=== PATIENT | female | born 1990 | race Caucasian/White ===

== ENCOUNTER 2024-08-09 03:00 | Day surgery (SDC) | payer BC, SELFPAY ==
[2024-08-09] VITALS (21 sets, daily range): BP systolic 93–140; BP diastolic 57–100; PULSE 53–92; RESP 11–18; TEMP 36.3–37; O2SAT 92–100; BMI 29.1
--- NOTE | 2024-08-09 03:33 | ED_ITS ---
HPI - General Adult General Chief complaint: Nausea/Vomiting Stated complaint: Vomiting Time Seen by Provider: 08/09/24 03:22 Source: patient Mode of arrival: ambulatory Limitations: no limitations History of Present Illness HPI narrative: 34-year-old female presents the emergency department for evaluation of abdominal pain. Epigastric and right upper quadrant area in nature. Patient has been having some intermittent similar episodes that are not this severe over the past year or 2. She has worked with her primary care provider and they have suspected that she probably has gallstones. She has not had imaging. No excessive alcohol intake. She had been modifying her diet, eating bland, low- fat foods. Tonight, she made tacos for her family. No one else is ill. But about an hour after dinner she started having intense abdominal pain with nausea. She tried taking Tylenol and ibuprofen and taking a hot bath but her symptoms worsen. She continues to have persistent vomiting which is now just retching. No fever. Pain persists. Does not radiate. She has had a prior vaginal posterior pelvic wall repair. She has also had a laparoscopic tubal ligation. No other intra-abdominal surgeries. Past medical history is notable for anxiety disorder. Takes fluoxetine 20 mg once daily. No known drug allergies. Denies significant alcohol intake. ROS is notable for the generalized and GI symptoms as above, otherwise denies times 12 systems. Related Data Home Medications ?Medication ?Instructions ?Recorded ?Confirmed fluoxetine 20 mg capsule 20 mg PO QAM 08/09/24 08/09/24 Allergies Allergy/AdvReac Type Severity Reaction Status Date / Time No Known Drug Allergies Allergy Verified 08/09/24 03:15 Exam Const: Vital Signs, click to edit/add: Vital Signs - 24 hr 08/09/24 03:10 Temperature 97.7 F Pulse Rate [Pulse Oximeter] 68 Respiratory Rate 16 Blood Pressure [Ri ght Upper Arm] 129/95 H Pulse Oximetry 98 Oxygen Delivery Me thod Room Air Documenting provider has reviewed patient's vital signs: yes Common normals: no apparent distress General appearance: well kempt Other: Appears mildly acutely ill. Pale. HENMT: Common normals: normocephalic, moist oral mucous membranes and oropharynx normal Head and scalp: normocephalic Eye: Common normals: conjunctivae normal and no scleral icterus General eye: normal appearance of both eyes Conjunctiva: conjunctiva(e) normal Neck & C-Spine: Common normals: full ROM and no lymphadenopathy Resp: Common normals: normal respiratory effort, no use of accessory muscles and clear to auscultation bilaterally Effort & inspection: able to speak in complete sentences Auscultation: clear to auscultation bilaterally Cardio: Common normals: regular rate, regular rhythm, S1 normal heart sound, S2 normal heart sound and no murmurs Rate: regular rate Rhythm: regular rhythm Heart sounds: S1 normal and S2 normal GI: Common normals: Normal to inspection, nondistended, normoactive bowel sounds present, soft to palpation, no hepatosplenomegaly and no masses Palpation: soft and no hepatosplenomegaly Other: Mildly tender to palpation of epigastrium and right upper quadrant. Does not seem to have guarding or rebound tenderness. : Common normals: no CVA tenderness Bladder/kidney exam: no CVA tenderness Back & Pelvis: Common normals: no CVA tenderness Extremity: Common normals: normal to inspection, normal capillary refill and no pedal edema Psych: Common normals: speech normal Appearance: well kempt Attitude: engaged Activity/motor behavior: appropriate eye contact Speech: normal speech Mood and affect: euthymic mood Insight: insight good Judgement: judgment good Skin: Common normals: no rashes or lesions noted General skin exam: no rashes or lesions noted Course Course ED Course: 34-year-old female with recurrent abdominal pain suspicious for baseline gallbladder disease now presenting with more severe pain, nausea and vomiting and persistent symptoms over the past several hours that is suspicious for acute cholecystitis. Cannot exclude choledocholithiasis, colitis, gastritis, musculoskeletal etiology, pancreatitis, amongst others. Will obtain urinalysis, test, typical intra-abdominal labs. I would like to await these studies prior to ordering imaging. We do not have non emergent ultrasound available overnight. Ultrasound may be better than CT based on lab findings. Will give Dilaudid and Zofran as well as a 0.5 L of IV fluids. We are still on conservation mode due to national shortage for IV fluids. Reevaluation(s) Time of Reevaluation #1: 05:32 Reevaluation #1: Updated patient on CT findings, consistent with acute appendicitis. Labs reassuring except mild leukocytosis. Spoke with Dr. Medina from surgery, will plan for appendectomy today. Will give Zosyn x1 and another 500 mL fluid bolus. P.r.n. Dilaudid has been ordered. We still do not have overnight nursing support, will plan to admit to same day surgery once available later this morning. Vital Signs Vital signs: Initial Vital Signs Temperature 97.7 F 08/09/24 03:10 Temperature Source Temporal Artery Scan 08/09/24 03:10 Pulse Rate 68 08/09/24 03:10 Respiratory Rate 16 08/09/24 03:10 Blood Pressure 129/95 H 08/09/24 03:10 Blood Pressure Mean 106 H 08/09/24 03:10 Blood Pressure Position Supine 08/09/24 03:10 Pulse Oximetry 98 08/09/24 03:10 Oxygen Delivery Method Room Air 08/09/24 03:10 Vital Signs Temperature 97.7 F 08/09/24 03:10 Pulse Rate 68 08/09/24 03:10 Respiratory Rate 16 08/09/24 03:10 Blood Pressure 129/95 H 08/09/24 03:10 Pulse Oximetry 98 08/09/24 03:10 Oxygen Delivery Method Room Air 08/09/24 03:10 Temperature 97.7 F 08/09/24 03:10 Pulse Rate 68 08/09/24 03:10 Respiratory Rate 16 08/09/24 03:10 Blood Pressure 129/95 H 08/09/24 03:10 Pulse Oximetry 98 08/09/24 03:10 Oxygen Delivery Method Room Air 08/09/24 03:10 Medications Administered Medications: Generic Name Dose Route Start Last Admin Trade Name Freq PRN Reason Stop Dose Admin Hydromorphone HCl 0.2 - 0.5 mg 08/09/24 05:30 08/09/24 05:53 Hydromorphone 0.5 Mg/0.5 Ml Inj IVP 0.5 mg Q1H PRN Administration Pain Discontinued Medications Generic Name Dose Route Start Last Admin Trade Name Freq PRN Reason Stop Dose Admin Hydromorphone HCl 0.5 mg 08/09/24 03:31 08/09/24 03:40 Hydromorphone 0.5 Mg/0.5 Ml Inj IVP 08/09/24 03:32 0.5 mg ONCE ONE Administration Sodium Chloride 500 mls @ 500 mls/hr 08/09/24 03:31 08/09/24 04:09 0.9 % Sodium Chloride 500 Ml IV 08/09/24 04:30 Infused .Q1H ONE Infusion Piperacillin Sod/Tazobactam 100 mls @ 200 mls/hr 08/09/24 05:30 08/09/24 05:53 Sod 3.375 gm/ Sodium Chloride IVPB 08/09/24 05:31 200 mls/hr ONCE ONE Administration Sodium Chloride 500 mls @ 500 mls/hr 08/09/24 05:30 08/09/24 05:53 0.9 % Sodium Chloride 500 Ml IV 08/09/24 06:29 500 mls/hr .Q1H ONE Administration Ondansetron HCl 4 mg 08/09/24 03:31 08/09/24 03:39 Ondansetron 2 Mg/Ml Inj IVP 08/09/24 03:32 4 mg ONCE ONE Administration Medical Decision Making Lab Data Labs: Lab Results 08/09/24 08/09/24 Range/Units 03:23 04:14 WBC 13.00 H (4.50-11.00) K/uL RBC 4.86 (4.00-5.20) m/uL Hgb 14.4 (12.0-16.0) gm/dL Hct 43.4 (33.0-51.0) % MCV 89 (80-100) fL MCH 30 (26-34) pg MCHC 33 (32-36) gm/dL RDW Coeff of Pari 11.9 (11.5-15.5) % Plt Count 215 (140-440) K/uL Neut % (Auto) 81.1 H (42.0-72.0) % Lymph % (Auto) 11.2 L (20-44) % [place] % (Auto) 6.0 (0.0-11.0) % Eos % (Auto) 1.3 (0.0-7.0) % Baso % (Auto) 0.2 (0.0-3.0) % Neut # (Auto) 10.50 H (1.7-7.0) K/uL Lymph # (Auto) 1.50 (0.90-2.90) K/uL [place] # (Auto) 0.80 (0.00-0.90) K/UL Eos # (Auto) 0.20 (0.00-0.50) K/uL Baso # (Auto) 0.00 (0.00-0.30) K/uL Abs Immat Gran (auto) 0.00 (0.00-0.30) K/uL Imm/Tot Granulo (auto) 0.2 % Sodium 136 (135-149) mmol/L Potassium 4.0 (3.6-5.1) mmol/L Chloride 100 (96-114) mmol/L Carbon Dioxide 24 (20-32) mmol/L Anion Gap 12 (7-15) mEq/L BUN 16 (5-24) mg/dL Creatinine 0.7 (0.5-1.5) mg/dL Estimated Creat Clear 107.01 Estimated GFR 117 ml/min Glucose 120 H (60-115) mg/dL Calcium 9.6 (8.4-10.6) mg/dL Total Bilirubin 0.6 (0.1-1.5) mg/dL AST 33 (12-35) U/L ALT 20 (4-35) U/L Alkaline Phosphatase 62 (40-150) U/L C-Reactive Protein 0.5 (0.5-1.0) mg/dL Total Protein 7.7 (6.0-8.3) g/dL Albumin 4.6 (3.3-5.0) g/dL Lipase 49 (23-300) U/L Urine Color Yellow (Yellow) Urine Appearance Cloudy A (Clear) Urine pH >= 9.0 H (5.0-8.5) Ur Specific [place] 1.015 (1.000-1.030) Urine Protein 1+ A (Negative) Urine Glucose (UA) Negative (Negative) Urine Ketones Negative (Negative) Urine Blood 3+ A (Negative) Urine Nitrite Negative (Negative) Urine Bilirubin Negative (Negative) Urine Urobilinogen 0.2 (0.2-1.0) Ur Leukocyte Esterase Trace A (Negative) Urine RBC 10-25 A (0-2) Urine WBC 0-2 (0-5) Ur Squamous Epith Cells Few (None-Few) Amorphous Sediment Few A (None) Urine Bacteria Few A (None) Urine HCG, Qual Negative (Negative) Discharge Plan Discharge Clinical Impression: Acute appendicitis Patient Disposition: XFER to OR Follow Up/Referrals: Beba Fields MD [Primary Care Provider] -
[2024-08-09 03:38] LABS: Basophils Percent Auto 0.2 % (0.0-3.0); Eosinophils Percent Auto 1.3 % (0.0-7.0); Hematocrit 43.4 % (33.0-51.0); Hemoglobin* 14.4 gm/dL (12.0-16.0); Immature Granulocytes Pct Auto 0.2 %; Lymphocytes Percent Auto 11.2 % (20-44); Mean Corpuscular HGB Conc 33 gm/dL (32-36); Mean Corpuscular Hemoglobin 30 pg (26-34); Mean Corpuscular Volume 89 fL (80-100); Neutrophils Percent Auto 81.1 % (42.0-72.0); Platelet Count* 215 K/uL (140-440); RDW Coefficient of Variation % 11.9 % (11.5-15.5); Red Blood Count 4.86 m/uL (4.00-5.20); Slide Review Reflex No
[2024-08-09] MEDS: ONDANSETRON 2 MG/ML inj 4 MG IVP ×2 (03:39→09:16)
[2024-08-09] MEDS: 0.9 % SODIUM CHLORIDE 500 ML 500 ML IV ×2 (03:39→05:53)
[2024-08-09] MEDS: HYDROmorphone 0.5 mg/0.5 ml inj IVP ×4 (03:40→11:35)
[2024-08-09 03:43] LABS: Albumin* 4.6 g/dL (3.3-5.0); Chloride* 100 mmol/L (96-114)
[2024-08-09 03:44] LABS: Sodium* 136 mmol/L (135-149)
[2024-08-09 03:46] LABS: Bilirubin Total* 0.6 mg/dL (0.1-1.5); Creatinine* 0.7 mg/dL (0.5-1.5); Est. Creatinine Clearance* 107.01; Estimated Glomerular Filt Rate 117 ml/min
[2024-08-09 03:47] LABS: Alanine Aminotransferase* 20 U/L (4-35); Alkaline Phosphatase* 62 U/L (40-150); Anion Gap 12 mEq/L (7-15); Aspartate Amino Transferase* 33 U/L (12-35); Blood Urea Nitrogen* 16 mg/dL (5-24); Calcium* 9.6 mg/dL (8.4-10.6); Carbon Dioxide* 24 mmol/L (20-32); Glucose* 120 mg/dL (60-115); Lipase* 49 U/L (23-300); Total Protein* 7.7 g/dL (6.0-8.3)
[2024-08-09 03:50] LABS: C Reactive Protein* 0.5 mg/dL (0.5-1.0)
[2024-08-09 04:19] LABS: Appearance Urine Cloudy (Clear); Bilirubin Urine Negative (Negative); Blood Urine 3+ (Negative); Color Urine Yellow (Yellow); Glucose Urine Negative (Negative); Ketones Urine Negative (Negative); Leukocyte Esterase Urine Trace (Negative); Nitrite Urine Negative (Negative); Protein Urine 1+ (Negative); Specific Gravity Urine 1.015 (1.000-1.030); Urobilinogen Urine 0.2 (0.2-1.0)
[2024-08-09 04:21] LABS: Ur HCG Qualitative* Negative (Negative); pH Urine >= 9.0 (5.0-8.5)
--- NOTE | 2024-08-09 04:24 | CRLHL7_ITS ---
For Patients: As a result of the Century Cures Act, medical imaging exams and procedure reports are released immediately into your electronic medical record. You may view this report before your referring provider. If you have questions, please contact your health care provider. INDICATION: Right upper quadrant abdominal pain. COMPARISON: None. TECHNIQUE: CT of the abdomen and pelvis with intravenous contrast. Multiplanar axial, coronal, and sagittal reformats were reconstructed. Contrast: 89 mL Isovue 370. FINDINGS: Lung bases: Calcified granuloma right lower lobe Liver: Normal. No mass. Gallbladder and bile ducts: Normal gallbladder. No bile duct dilation. Pancreas: Normal. Spleen: Calcified granulomas. Adrenal glands: Normal. Kidneys: Normal parenchyma. No cyst or solid mass. No calculi. No urinary tract dilation. Urinary bladder: Normal. Pelvis: There are 2 separate endometrial canals at the uterine fundus by 3.4 cm. Indentation that this 2 centimeters and the angle between the fundi is 60 degrees. Preserved contour of the uterine fundus, without indentation. Overall findings likely reflect a septate uterus. Vessels: Normal. Bowel: No dilated or inflamed small bowel or colon. The appendix arises from the cecum and extends along the right pelvic sidewall posteriorly with the tip down along the right side of the rectum. At the appendiceal base there is a 6 millimeter appendicolith with significant adjacent inflammatory thickening and edema in the appendix wall. Maximum appendiceal diameter 1.5 cm. The distal appendix is dilated up to 1.1 cm. Mild adjacent inflammatory stranding and no phlegmon or abscess. See axial images series 2 image 125 through series 2, image 114 to follow the appendix from the base to the tip. Mild stool burden. Trace pelvic free fluid. Lymph nodes: No adenopathy. Peritoneum: No ascites. Abdominal wall: No hernia. Bones: No fractures. No focal worrisome bone lesions. IMPRESSION: Acute appendicitis. There is an appendicolith. No abscess or phlegmon. Please note that all CT scans at this facility use dose modulation, iterative reconstruction, and/or weight-based dosing when appropriate to reduce radiation dose to as low as reasonably achievable. Dictated by Emily Goodwin MD @ 08/09/2024 5:22:37 AM (Electronically Signed)
[2024-08-09 04:26] LABS: Amorphous Sediment Urine Few; Bacteria Urine Few; Squamous Epithelial Cell Urine Few (None-Few); WBC Urine 0-2 (0-5)
[2024-08-09] MEDS: PIPERACILLIN/TAZOBACTAM 3.375 GM in 0.9 % SODIUM CHLORIDE Mini-bag 100 ML IVPB (05:53)
--- NOTE | 2024-08-09 09:18 | ED.NURSE ---
Dr. Ryan in with patient consulting for procedure.
--- NOTE | 2024-08-09 09:54 | P.GSHP_ITS ---
History of Present Illness History of Present Illness Date Seen: 08/09/24 Chief complaint: Vomiting Narrative: Shandra Littlejohn is a 34 year old female presented to emergency room with multiple episodes of vomiting and crampy periumbilical abdominal pain. Patient states that her pain started after she started vomiting. The episodes of vomiting started last night. Patient vomited multiple times. She was concerned that it was her gallbladder that was causing her trouble. Patient took ibuprofen and Tylenol but that did not improve her pain. I personally reviewed her workup in the emergency room. Patient was found to have elevated WBC of 13. Her liver function tests were normal. An abdominal CT was obtained that showed dilated wall enhancing appendix with an appendicolith at the base with periappendiceal inflammation. The appendix was located in the pelvis. There was no evidence of periappendiceal abscess. Review of Systems Narrative: General: no fevers HENT: no problems swallowing CV: no shortness of breath Resp: no cough GI: No nausea, vomiting, abdominal pain : no dysuria, no increased urinary frequency, no hematuria Skin: no new rashes Musculoskeletal: no back pain Neuro: no muscle weakness Psyche: no depression, no anxiety PFSH PFSH Surgical History H/O lymph node excision ?Z98.890 - Other specified postprocedural states (ICD-10) H/O tubal ligation ?Z98.51 - Tubal ligation status (ICD-10) History of vaginal surgery ?Z98.890 - Other specified postprocedural states (ICD-10) Social History Narrative: Patient works for [employer] and 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 Smoking Status: Never smoker Do you use any of these nicotine containing products: None Second hand tobacco smoke exposure: No How often do you have a drink containing alcohol: never How often do you have six or more drinks on one occasion: Never AUDIT-C Alcohol total score: 0 Non-prescribed substance use: denies use service: No Meds Home Medications and Allergies Home Medications ?Medication ?Instructions ?Recorded ?Confirmed ?Type fluoxetine 20 mg capsule 20 mg PO QAM 08/09/24 08/09/24 History Allergies Allergy/AdvReac Type Severity Reaction Status Date / Time No Known Drug Allergies Allergy Verified 08/09/24 03:15 Exam Narrative: Exam Narrative: General appearance: Alert, cooperative, and in no distress Pulmonary: Chest symmetric, lungs clear bilaterally Cardiovascular Heart: Regular rate and rhythm, S1, S2, no murmurs/rubs/gallops Gastrointestinal Abdominal: soft, not distended, tender to palpation in the right lower quadrant and suprapubically with rebound tenderness. Skin: Normal skin color, texture, and turgor. No rashes or lesions. Psychiatric: Alert, cooperative, normal affect. Const: Vital Signs, click to edit/add: Vital Signs - 24 hr 08/09/24 03:10 08/09/24 07:30 08/09/24 07:30 Temperature 97.7 F 98.4 F Pulse Rate [Pulse Oximeter] 68 77 Respiratory Rate 16 16 Blood Pressure [Ri ght Upper Arm] 129/95 H 105/66 Pulse Oximetry 98 98 98 Oxygen Delivery Me thod Room Air Room Air 08/09/24 09:00 Temperature 98.1 F Pulse Rate [Pulse Oximeter] 73 Respiratory Rate 18 Blood Pressure [Ri ght Upper Arm] 114/68 Pulse Oximetry 98 Oxygen Delivery Me thod Room Air Progress Note:A&P Assessment and plan (1) Acute appendicitis: Status: Acute Plan 34-year-old female presented with acute appendicitis. I discussed with the patient her laboratory and imaging findings. On clinical exam patient has tenderness to palpation in right lower quadrant. Her CT findings show dilated wall enhancing appendix with an appendicolith. I recommended to proceed with laparoscopic appendectomy. The procedure was discussed in detail. The risks associated procedure including infection, bleeding, injury to intra-abdominal organs, and the need for additional procedures were all discussed with the patient, she agreed to proceed.
--- NOTE | 2024-08-09 09:58 | PM.GSPRC ---
Operative Note Date of procedure: 08/09/24 Pre-op diagnosis: 1. Acute appendicitis. Post-op diagnosis: Same Type of Procedure: 1. Laparoscopic appendectomy. Indications: 34-year-old female presented to emergency room with periumbilical and right lower quadrant abdominal pain and vomiting. On clinical exam patient had tenderness to palpation in the right lower quadrant with rebound tenderness. Her workup showed elevated WBC of 13. Abdominal CT was obtained that showed dilated wall enhancing appendix with periappendiceal inflammation. There was no evidence of kofi appendiceal abscess. Given patient's clinical history and her CT findings, acute appendicitis was suspected and laparoscopic appendectomy was recommended. The procedure was discussed in detail. The risks associated procedure including infection, bleeding, injury to intra-abdominal organs, and the need for additional procedures were all discussed with the patient, and she agreed to proceed. Procedure Description: After discussing the risks and benefits of the procedure, the patient signed informed consent.? The operative site was marked and the patient was brought to the operating room and placed on the operating table in supine position.? Care was taken to pad the patient's pressure points.?? The patient was then intubated by anesthesia.?? The operative site was then prepped and draped in the usual sterile fashion.? A time-out was then performed. A 5-mm laparoscopy port was placed in the left upper quadrant guided by a 5-mm laparoscope placed into a translucent trochar. Passage through the layers of the abdominal wall was visualized with the laparoscope. A pneumoperitoneum was established. A 30-degree 5-mm laparoscope was advanced into the abdomen. The abdomen was briefly surveyed, and there was no evidence of diffuse peritonitis. A 12-mm port and a 5-mm port were placed in the left low quadrant and suprapubically, respectively, under direct visualization by laparoscope. Left upper quadrant entrance port was then examined intraabdominally by placing the camera through the left lower quadrant port and no intraabdominal injury was seen. The patient was placed in Trendelenburg position, allowing the abdominal contents to shift cephalad. The small bowel was moved toward the midline in the abdomen and this allowed for identification of the appendix. Appendix was located in the right pelvis. The appendix was grasped and retracted towards the abdominal wall. It appeared to be inflamed. Appendix was dissected from the lateral peritoneum using Harmonic scalpel. Appendiceal mesentery was skeletonized with the Harmonic scalpel until appendiceal artery was identified. The appendiceal artery was clipped with three 5 mm clips on the patient's side and divided with Harmonic scalpel on the specimen side. The appendiceal base was further skeletonized with the Harmonic scalpel. The appendiceal base was inflamed. A vascular load Endo-DANNIELLE stapler was advanced through the 12-mm port into the abdomen and appendix was stapled just proximal to its inflamed base on the cecum. The appendix was then placed in an endoscopic retrieval bag and extracted from the abdomen through the 12-mm port. The abdomen was surveyed for hemostasis. And no bleeding was seen. The appendiceal base staple line appeared to be intact. The 12-mm port was withdrawn and the fascial defect was closed with 0-0 Vicryl stitch using Adrien Carlos needle under direct visualization. The 5-mm port was removed under direct visualization. The left upper quadrant port was used to evacuate the pneumoperitoneum and then withdrawn. The skin incisions were closed with 4-0 monocryl. Steri-Strips were applied over the incisions. All counts were correct at the end of the case. The patient tolerated this procedure well and was transferred to PACU in stable condition. Findings: Inflamed appendix. No periappendiceal abscess. Anesthesia: GETA Surgeon: Carlitos Ryan MD Estimated blood loss (mL): 5 Specimen: Appendix Condition: stable Disposition: PACU
[2024-08-09] MEDS: CEFAZOLIN 2 GM INJ IVP (10:15)
[2024-08-09] MEDS: LIDOCAINE 1%-EPI 1:100,000 20 ML INFILTRATI (10:40)
[2024-08-09] MEDS: BUPIVACAINE 0.25% 30 ML INJECTION (10:40)
--- NOTE | 2024-08-09 11:09 | P.ANES_ITS ---
Anesthesia Charges Start Date/Time Anesthesia Start Date: 08/09/24 Anesthesia Start Time: 10:02 Stop Date/Time Anesthesia Stop Date: 08/09/24 Anesthesia Stop Time: 11:00 Summary Emergency: [employer]
[2024-08-09] MEDS: HALOPERIDOL 5 MG/ML INJ 1 MG IV (11:20)
--- NOTE | 2024-08-09 12:00 | SUR.PHASEI ---
into pacu with 100cc ns, infused 60cc in phase 1
--- NOTE | 2024-08-09 12:28 | PC.NURSE ---
Per Shandra, ok to update ex Tai and sister. Called and spoke with both.
--- NOTE | 2024-08-09 15:12 | PC.NURSE ---
Pt returned from PACU alert, oriented, and able to verbalize her needs. VS WNL and LS COA. 3 lap sites to abdomen intact with steri-strips. Scant bloody discharge noted on left lateral site. Pt advanced to regular diet without difficulty, denies nausea, and walking independently throughout her room. She was able to void x1 postoperatively. Pt was discharged to home in the care of her family at 1500. Pt verbalized understanding of discharge instructions and follow up appointments.
== END 2024-08-09 15:00 | disposition home or self-care (01) ==
LOC: ED 08:25 → SS 10:04 → MEDSURG 12:02
PROVIDERS: Emergency Provider Family Medicine; PCP Family Medicine; Visit Provider Surgery
PROC: 0DTJ4ZZ Resection of Appendix, Percutaneous Endoscopic Approach (ICD-10-PCS; CPT 44970; principal; 2024-08-09 09:55)
DX: K35.80 Unspecified acute appendicitis (principal); R10.31 Right lower quadrant pain
CPT/HCPCS: 44970; 00840; 36415; 74177; 80053; 81001; 81003; 81025; 83690; 85025; 86140; 87086; 88304; 94761; 99140; 99284; 99285; J0330; J0665; J0690; J1100; J1171; J1200; J1630; J2250; J2371; J2405; J2543; J2704; J2710; J3010; J7030; Q9967

== ENCOUNTER 2024-09-03 13:58 | Outpatient (CLI) | payer BC, SELFPAY ==
--- NOTE | 2024-09-03 14:00 | CRLHL7_ITS ---
For Patients: As a result of the Century Cures Act, medical imaging exams and procedure reports are released immediately into your electronic medical record. You may view this report before your referring provider. If you have questions, please contact your health care provider. INDICATION: 34-year-old woman with history of abdominal pain TECHNIQUE: 5.1 MCi Tc 99m Mebrofenin were administered intravenously and serial static images were obtained over the anterior abdomen over 60 minutes, demonstrating radiotracer uptake within the gallbladder and demonstrating tracer exiting into the small bowel. Subsequently, 1.6 Micrograms cholecystokinin was administered intravenously and the anterior abdomen was serially imaged with static views for another 30 minutes. COMPARISON: CT abdomen/pelvis 08/09/2024 FINDINGS: There is normal radionuclide activity in the liver, common bile duct, gallbladder and small bowel. There is no evidence for cystic or common duct obstruction or intrinsic liver disease. After administration of cholecystokinin, tracer is demonstrated exiting the gallbladder into the common bile duct and small bowel. The gallbladder ejection fraction measures 74%. Normal range for GB EF: Equal to or greater than 35%. IMPRESSION: 1. Normal hepatobiliary scan. 2. Gallbladder ejection fraction measures 74%, within normal limits. Dictated by Naldo Cavazos MD @ 09/03/2024 3:59:52 PM (Electronically Signed)
== END 2024-09-03 13:59 | disposition home or self-care (01) ==
LOC: NM 13:59
PROVIDERS: PCP Family Medicine; Visit Provider Family Medicine
DX: R10.11 Right upper quadrant pain (principal)
CPT/HCPCS: 78227; A9537; J2805